=== PATIENT | female | born 1970 | race Caucasian/White ===

== ENCOUNTER 2022-12-30 08:15 | Outpatient (CLI) | payer OTHER, SELFPAY | END 2022-12-30 08:16 | disposition home or self-care (01) | PROVIDERS: PCP Family Medicine; Visit Provider Internal Medicine | DX: E78.5 Hyperlipidemia, unspecified (principal); I10 Essential (primary) hypertension; R73.03 Prediabetes | CPT/HCPCS: 80048; 80061 ==

== ENCOUNTER 2023-01-08 10:30 | Outpatient (RCR) | payer OTHER, SELFPAY | END 2023-03-12 10:08 | disposition home or self-care (01) | PROVIDERS: PCP Family Medicine; Visit Provider Family Medicine | DX: M77.11 Lateral epicondylitis, right elbow (principal); M25.521 Pain in right elbow; Z51.89 Encounter for other specified aftercare | CPT/HCPCS: 97110; 97165; X5282 ==

== ENCOUNTER 2023-03-16 08:35 | Outpatient (CLI) | payer OTHER, SELFPAY ==
--- NOTE | 2023-03-16 09:45 | CRLHL7_ITS ---
For Patients: As a result of the Century Cures Act, medical imaging exams and procedure reports are released immediately into your electronic medical record. You may view this report before your referring provider. If you have questions, please contact your health care provider. BILATERAL SCREENING MAMMOGRAM WITH COMPUTER-AIDED DETECTION AND TOMOSYNTHESIS TECHNIQUE: CC and MLO views were obtained. These mammographic images have been obtained using full-field digital technique. These mammographic images were interpreted with the benefit of computer-aided detection. Breast tomosynthesis was used in this interpretation. COMPARISON FILM: 10/18/21, 04/17/20, 02/09/19. FINDINGS: There are scattered areas of fibroglandular density. IMPRESSION: There is no radiographic evidence for malignancy. ASSESSMENT: BI-RADS Category 1: Negative RECOMMENDATION: Routine screening mammogram in 1 year. A lay language report of this examination will be provided to the patient. KT BANG M.D. Diagnostic Radiologist [email or web address] Transcribed: 4:[address]/Dictated by: Kt Bang MD @ 03/16/2023 11:22:00 AM (Electronically Signed)
== END 2023-03-16 08:36 | disposition home or self-care (01) ==
PROVIDERS: PCP Family Medicine; Visit Provider Internal Medicine
DX: Z12.31 Encounter for screening mammogram for malignant neoplasm of breast (principal)
CPT/HCPCS: 77063; 77067

== ENCOUNTER 2024-01-20 08:34 | Emergency (ER) | payer BC, SELFPAY ==
[2024-01-20 08:37] VITALS: BP 151/94; PULSE 92; RESP 18; TEMP 36.6; O2SAT 97; BMI 34.2
--- OUTSIDE RECORDS SUMMARY | 2024-01-20 08:37 | XMS_ITS | Encounter Summary ---
[facility] Address [address], [place] [address] Care Team Providers Care Customer Specialist Name Role Phone Pete Mcfarland MD Primary Care Provider [phone]- [phone] Reason for Visit * Reason Comments Medication Questions Entered automatical ly based on patient selection in [facility]. Encounter Details Date Type Department Care Team (Late Contact Info) Description 11/30/2023 9:00 AM CDT E-Visit [facility] [address] [place] [address] [place] [id number] Ioana Hogue PAKhloe [address] [facility] [address] [place] [id number] Chief Comp: Medication Questions Social History Tobacco Use Types Packs/Day Years Used Date Smoking Tobacco: Never Smokeless Tobacco: Never Alcohol Use Standard Drinks/Week Comments No 0 (1 standard drink = 0.6 oz pur e alcohol) Sex and Gender Information Value Date Recorded Sex Assigned at Not on file Gender Identity Not on file Sexual Orientation Not on file documented as of this encounter Plan of Treatment Upcoming Encounters Date Type Department Care Team (Late Contact Info) Description 01/20/2024 11:00 AM CDT Telemedicine [facility] [address] [facility] [address] [place], [place] [address] Ioana Hogue PAKhloe [id number] [place], [place] [address] documented as of this encounter Visit Diagnoses Not on filedocumented in this encounter Care Teams Customer Specialist Relationship Specialty Start Date End Date Pete Mcfarland MD [address] [place] [address] PCP - General 03/18/16 documented as of this encounter
--- OUTSIDE RECORDS SUMMARY | 2024-01-20 08:37 | XMS_ITS | Clinical Summary ---
[facility] Address [address], [place] [address] Care Team Providers Care Statue Maker Name Role Phone Pete Mcfarland MD Primary Care Provider [phone]- [phone] Source Comments You are receiving this document as you are listed as the primary care provider,follow-up provider, or the patient has been referred to you for consultation.This is in compliance with the Medicare and[facility] Hospital[facility] EHR Incentive Program,which states Providers who transition their patient to another setting of careor provider of care or refers their patient to another provider of care shouldprovide summary care record for each transition of care or referral. [facility] Allergies No known active allergies Medications Medication Sig Dispensed Refills Start Date End Date Status hydrochlorothiazid e (AKA HYDRODIURIL) 25 MG tabletIndications: ALEXANDRA SÁNCHEZ ThuOct 01, 2015 12:59 PM Received from: External Pharmacy Take 1 Tablet (25 mg) by mouth daily. Indications: ALEXANDRA SÁNCHEZ ThuOct 01, 2015 12:59 PM Received from: External Pharmacy 3 08/01/2015 Active multivitamin (THERAGRAN) tablet Take 1 Tablet by mouth daily. Active simvastatin (ZOCOR) 10 MG tablet Take 1 Tablet (10 mg) by mouth daily at bedtime. Active insulin pen needle (BD PEN NEEDLE BEATRIZ U/F) 32G X 4 MM Inject 1 Each subcutaneously once a week. with pen injector device. Each needle is for one time use only 50 Each 07/31/2021 Active tirzepatide-weight management (ZEPBOUND) 2.5 MG/0.5ML pen injectionIndicatio ns:Prediabetes,Obe sity (BMI 30-39.9) ([place]) Inject 0.5 mL (2.5 mg) subcutaneously once every week. 2 mL 08/18/2023 Active tirzepatide-weight management (ZEPBOUND) 5 MG/0.5ML pen injectionIndicatio ns:Prediabetes,Obe sity (BMI 30-39.9) ([place]) Inject 0.5 mL (5 mg) subcutaneously once every week. To start after completion of four weeks of 2.5 mg weekly dosing. 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 Obesity (BMI 30-39.9) 04/18/2016 Hyperlipidemia Essential (primary) hypertension Encounters Date Type Department Care Team Description 01/20/2024 E-Visit [facility] [address] [facility] [address] [place] [address] Juan Mukherjee Provider 11/30/2023 9:00 AM CDT E-Visit [facility] [address] [place] [facility] [place] [address] Ioana Hogue PA-C Chief Comp: Medication Questions from Last 3 Months Social History Tobacco Use Types Packs/Day Years Used Date Smoking Tobacco: Never Smokeless Tobacco: Never Tobacco Cessation:Counseling Given: No Alcohol Use Standard Drinks/Week Comments No 0 (1 standard drink = 0.6 oz pur e alcohol) Sex and Gender Information Value Date Recorded Sex Assigned at Not on file Gender Identity Not on file Sexual Orientation Not on file Last Filed Vital Signs Vital Sign Reading Time Taken Comments Blood Pressure 122/84 02/04/2023 8:41 AM CDT Pulse 82 07/14/2019 10:43 AM LAW ENFORCEMENT INSTRUCTOR Temperature 36.1 ??C (97 ??F) 11/05/2017 11:16 AM CDT Respiratory Rate 20 10/07/2011 12:57 PM CDT Oxygen Saturation - - Inhaled Oxygen Concentration - - Weight 76.2 kg (168 lb) 09/02/2023 10:00 AM CDT Height 152.4 cm (5') 09/02/2023 10:00 AM CDT Body Mass Index 32.81 09/02/2023 10:00 AM CDT Plan of Treatment Upcoming Encounters Date Type Department Care Team (Late st Contact Info) Description 01/20/2024 11:00 AM CDT Telemedicine [facility] [address] [facility] [address] [place] [address] Ioana Hogue PA-C [address] [facility] [address] [place], [place] [id number] Health Maintenance Due Date Last Done Comments Cervical Cancer Screening Due 1970 Colon Cancer Screening Plan Due 1970 Hep C Screening (Preventive Services) 1970 Mammogram 1970 HIV Screening (Preventive Services) 1986 Adult Preventive Visit 1988 HepB (1) 1989 Cholesterol 2015 Prediabetes: HGBA1C 07/19/2022 07/19/2021 COVID-19 Vaccine ( season) 2023 03/03/2023, 04/23/2022, 09/07/2021, Additional history exists DTaP/Tdap/Td (2 - Tdap) 09/14/2023 09/13/2013 Influenza (#1) 2024 03/03/2023, 03/09, 03/18/2021, Additional history exists Zoster/Shingles Completed 09/07/2021, 01/04/2021 HepA Aged Out No longer eligi ble based on patient's age to complete this topic Hib Aged Out No longer eligi ble based on patient's age to complete this topic IPV (Polio) Aged Out No longer eligi ble based on patient's age to complete this topic MCV4 Aged Out No longer eligi ble based on patient's age to complete this topic Pneumococcal Aged Out No longer eligi ble based on patient's age to complete this topic Procedures Procedure Name Priority Date/Time Associated Diagnosis Comments HGB A1C Routine 07/19/2021 9:59 AM LAW ENFORCEMENT INSTRUCTOR Screening for diabetes mellitus Obesity (BMI 30-39.9) from Last 3 Months or Most Recently Relevant to Health Maintenance Results * (ABNORMAL) Hemoglobin A1C Glycosylated (07/19/2021 9:59 AM LAW ENFORCEMENT INSTRUCTOR) Hemoglobin A1C 5.9(H) <=5.6 % 07/19/2021 5:20 PM LAW ENFORCEMENT INSTRUCTOR [facility] Blood Venipuncture / Unknown 07/19/2021 9:59 AM LAW ENFORCEMENT INSTRUCTOR 07/19/2021 9:59 AM LAW ENFORCEMENT INSTRUCTOR Narrative [facility] - 07/19/2021 5:20 PM LAW ENFORCEMENT INSTRUCTOR For patients not previously diagnosed with diabetes: 5.7-6.4%: Increased risk for diabetes 6.5% and greater: Diagnostic for diabetes For patients diagnosed with diabetes: <8.0%: Goal of therapy for ages 18-75 Clinicians may recommend a higher or lower goal for specific individuals. Ioana Hogue PA-C LAB_1 [facility] [address] [address] [phone] from Last 3 Months or Most Recently Relevant to Health Maintenance Care Teams Statue Maker Relationship Specialty Start Date End Date Pete Mcfarland MD [address] [place] [address] PCP - General 03/18/16
--- OUTSIDE RECORDS SUMMARY | 2024-01-20 08:37 | XMS_ITS | Clinical Summary ---
Author Organization [facility] Address [place], [place] [address] Care Team Providers Care Rn Med Surg Name Role Phone Tatiana Cosby MD Primary Care Provider +1- [phone] Allergies No known active allergies Medications Medication Sig Dispensed Refills Start Date End Date Status hydroCHLOROthiazide (HCTZ) 25 mg tablet Take 25 mg by mouth once daily. 12/11/2022 Active Ozempic 1 mg/dose (4 mg/3 mL) pen Inject 1 mg subcutaneous once weekly. 11/04/2022 Active simvastatin (ZOCOR) 10 mg tablet Take 10 mg by mouth once daily. Active celecoxib (CELEBREX) 200 mg capsuleIndications: Right lateral epicondylitis Take 1 Capsule (200 mg) by mouth 2 times daily if needed for Pain. 36 Capsule 1 12/25/2022 Active durable medical equipment (DME)Indications:Ri ght lateral epicondylitis Procare Foam Wrist Splint, Right, Large [id number] Length of Use: 99 months 0 12/25/2022 Active Active Problems No known active problems Social History Tobacco Use Types Packs/Day Years Used Date Smoking Tobacco: Never Smokeless Tobacco: Never Tobacco Cessation:Counseling Given: No Alcohol Use Standard Drinks/Week Comments Never 0 (1 standard drink = 0.6 oz pur e alcohol) Social Connections Answer Date Recorded Frequency of Communication with Friends and Fami ly Not on file 12/25/2022 Sex and Gender Information Value Date Recorded Sex Assigned at Not on file Gender Identity Not on file Sexual Orientation Not on file Obstetrics History Last Filed Vital Signs Vital Sign Reading Time Taken Comments Blood Pressure 120/82 12/25/2022 7:41 AM CDT Pulse 70 12/25/2022 7:41 AM CDT Temperature 36.5 ??C (97.7 ??F) 12/25/2022 7:41 AM CD T Respiratory Rate - - Oxygen Saturation 97% 12/25/2022 7:41 AM CDT Inhaled Oxygen Concentration - - Weight 71.8 kg (158 lb 6.4 oz) 12/25/2022 7:41 A M CDT Height - - Body Mass Index - - Plan of Treatment Health Maintenance Due Date Last Done Comments Tdap 1981 Depression screening for age 12+ 1982 HIV for age 15-65 1985 BMI (ht and wt on same day) for age 18+ 1988 Hepatitis C screening for ag e 18-79 1988 Tetanus booster 1990 Pap test for age 21-65 1991 Colonoscopy through age 75 2015 Lipids for age 45-75 2015 Zoster (shingles) series for age 50+ (1 of 2) 2020 COVID-19 vaccine series (2022- season) 2023 04/23/2022, 09/07/2021, 03/15/2021 Influenza for age 50-64 02/07/2024 Mammogram for age 45-75 03/16/2024 03/16/2023 Pneumococcal series for age 6-64 Aged Out No longer eligible b ased on patient's age to complete this topic Procedures Procedure Name Priority Date/Time Associated Diagnosis Comments SCAN-MAMMOGRAPHY REPORT 03/16/2023 12:00 AM CDT from Last 3 Months or Most Recently Relevant to Health Maintenance Results * SCAN-MAMMOGRAPHY REPORT (03/16/2023 12:00 AM CDT) Anatomical Region Laterality Modality Other Scanner OTHER from Last 3 Months or Most Recently Relevant to Health Maintenance Care Teams Rn Med Surg Relationship Specialty Start Date End Date Tatiana Cosby MD [address] [place], [place] [id number] PCP - General Internal Medicine 12/25/22
--- OUTSIDE RECORDS SUMMARY | 2024-01-20 08:37 | XMS_ITS | Encounter Summary ---
Author Organization [facility] Address [address] [address] Care Team Providers Care Dental Detail Representative Name Role Phone Pete Mcfarland MD Primary Care Provider [phone]- [phone] Encounter Details Date Type Department Care Team (Late st Contact Info) Description 01/20/2024 E-Visit [facility] [address] [facility] [address] [place] [id number] [address], [place] [address] Social History Tobacco Use Types Packs/Day Years [...] Info) Description 01/20/2024 11:00 AM CDT Telemedicine [facility] [address] [facility] [address] [place] [address] Ioana Hogue PA-C [address] [facility] [address] [place], [place] [id number] documented as of this encounter Visit Diagnoses Not on filedocumented in this encounter Care Teams Dental Detail Representative Relationship Specialty Start Date End Date Pete Mcfarland MD [address] [place] [address] PCP - General 03/18/16 documented as of this encounter
--- NOTE | 2024-01-20 09:04 | ED_ITS ---
HPI - General Adult General Date Seen: 01/20/24 Chief complaint: Flank Pain Stated complaint: s/p kidney stone surgery increasing pain Time Seen by Provider: 01/20/24 08:41 Source: patient Mode of arrival: ambulatory Limitations: no limitations History of Present Illness HPI narrative: Patient is a 53 year old female presenting to emergency department for left flank pain. She states she was in [place] on a vacation when she developed a kidney stone and needed a ureter stent placed 5 days ago. She was told she could remove the stent 2 days ago which she did. She states about 6 hours after that she started having left flank pain again in the pain is very similar to her previous kidney stone. The pain was manageable with the oxycodone but she ran out of oxycodone yesterday and has been trying to treat the pain with naproxen and ibuprofen without any improvement in her symptoms. She states she is unable to sleep because of the pain. Describes a colicky sensation that does not radiate. Denies fevers, chills, weakness, numbness, abdominal pain, diarrhea, nausea/vomiting, headache, chest pain, shortness of breath. Has been having issues with constipation for over a week now and take MiraLax daily at home without improvement. Describes the pain as colicky in nature. Related Data Home Medications ?Medication ?Instructions ?Recorded ?Confirmed multivitamin (Multiple Vitamins 1 tab PO QAM 01/19/23 01/19/23 tablet) oxycodone 5 mg tablet PO 01/20/24 tirzepatide (weight loss) 5 mg/0.5 5 mg subcut QWEEK 01/20/24 01/20/24 mL subcutaneous pen injector (Zepbound) Previous Rx's ?Medication ?Instructions ?Recorded hydrochlorothiazide 25 mg tablet 25 mg PO DAILY #90 tabs 01/19/23 simvastatin 10 mg tablet 10 mg PO DAILY #90 tabs 01/19/23 triamcinolone acetonide 0.1 % 1 applic topical BID #60 grams 01/19/23 topical cream ketorolac 10 mg tablet 10 mg PO Q6H PRN pain #20 tabs 01/20/24 oxycodone 5 mg tablet 5 mg PO Q6H PRN pain #12 tabs 01/20/24 Allergies Allergy/AdvReac Type Severity Reaction Status Date / Time No Known Allergies Allergy Verified 01/20/24 09:52 Review of Systems Status of ROS: Reports: 10 or more systems reviewed and unremarkable except as noted in History and below PFSH PFSH Surgical History History of bilateral breast reduction surgery (05/2019) ?Z98.890 - Other specified postprocedural states (ICD-10) History of laparoscopic adjustable gastric banding (2007) ?Z98.84 - Bariatric surgery status (ICD-10) History of hysterectomy (2014) ?Z90.710 - Acquired absence of both cervix and uterus (ICD-10) History of cholecystectomy (02/14/09) ?Z90.49 - Acquired absence of other specified parts of digestive tract (ICD- 10) Social History What is your current living situation?: I presently have a place to live Problems where you live: no known problems In the past 12 months, utilities in danger of being shut off: no In past 12 months, lack of transportation kept you from medical appts, meetings, work, or getting things needed for daily living: no In the past 12 mos, have been you worried that your food would run out before you had money to buy more?: never true In the past 12 mos, the food you bought just didn't last and you didn't have money to buy more?: never true Non-prescribed substance use: denies use How often does anyone, including family, friends and others, physically hurt you : never How often does anyone, including family, friends and others, insult or talk down to you: never How often does anyone, including family, friends and others, threaten you with harm: never How often does anyone, including family, friends and others, scream or curse at you: never Little interest or pleasure in doing things: not at all Feeling down, depressed, or hopeless: not at all Exam Narrative: Exam Narrative: Const: Well-nourished, Well-developed, in moderate distress Eyes: PERRL, no conjunctival injection, and symmetrical lids HENT: Atraumatic external nose and ears. Moist mucous membranes. Neck: Symmetric, trachea midline, No thyromegaly. CVS: RRR, No murmurs or gallops. Peripheral pulses 2+ and equal in all extremities RESP: Unlabored respiratory effort. Clear to auscultation bilaterally. GI: Nontender/Nondistended, No rebound or guarding. Left CVA tenderness MSK:Extremities w/o deformity, Normal Active ROM Skin: Warm, Dry. No rashes or lesions. Neuro: Normal Muscle tone, No focal neurological deficits. Psych: Awake, Alert, & Oriented x3. Appropriate mood and affect. Const: Vital Signs, click to edit/add: Vital Signs - 24 hr 01/20/24 08:37 01/20/24 09:54 01/20/24 11:44 Temperature 97.9 F Pulse Rate [Right Pulse Oximeter] 92 84 Respiratory Rate 18 18 18 Blood Pressure [Ri ght Upper Arm] 151/94 H 139/93 H Pulse Oximetry 97 97 97 Oxygen Delivery Me thod Room Air Course Vital Signs Vital signs: Initial Vital Signs Temperature 97.9 F 01/20/24 08:37 Temperature Source Temporal Artery Scan 01/20/24 08:37 Pulse Rate 92 01/20/24 08:37 Respiratory Rate 18 01/20/24 08:37 Blood Pressure 151/94 H 01/20/24 08:37 Blood Pressure Mean 113 H 01/20/24 08:37 Blood Pressure Position Sitting 01/20/24 08:37 Pulse Oximetry 97 01/20/24 08:37 Oxygen Delivery Method Room Air 01/20/24 08:37 Vital Signs Temperature 97.9 F 01/20/24 08:37 Pulse Rate 92 01/20/24 08:37 Respiratory Rate 18 01/20/24 08:37 Blood Pressure 151/94 H 01/20/24 08:37 Pulse Oximetry 97 01/20/24 08:37 Oxygen Delivery Method Room Air 01/20/24 08:37 Temperature 97.9 F 01/20/24 08:37 Pulse Rate 84 01/20/24 11:44 Respiratory Rate 18 01/20/24 11:44 Blood Pressure 139/93 H 01/20/24 11:44 Pulse Oximetry 97 01/20/24 11:44 Oxygen Delivery Method Room Air 01/20/24 08:37 Medications Administered Medications: Discontinued Medications Generic Name Dose Route Start Last Admin Trade Name Freq PRN Reason Stop Dose Admin Ketorolac Tromethamine 15 mg 01/20/24 09:47 01/20/24 09:51 Ketorolac 15 Mg/Ml Inj IVP 01/20/24 09:48 15 mg ONCE ONE Administration Morphine Sulfate 4 mg 01/20/24 09:04 01/20/24 09:31 Morphine 4 Mg/Ml Inj IVP 01/20/24 09:05 4 mg ONCE ONE Administration Medical Decision Making MDM Narrative Medical decision making narrative: Patient is a 53-year-old female presenting for left flank pain. She recently removed a ureter stent as directed and pain started after that. Has ran out of oxycodone and states the pain is becoming unmanageable at home. Her symptoms could be pyelonephritis, muscle strain. Seems unlikely to be another kidney stone considering she just had surgery to remove a kidney stone but I do not have the report and I am unable to say if there were other nonobstructing stones within the kidney that may have moved. Seems unlikely to be related to a AAA as it is unilateral and she would be low risk for this. Will give her morphine for pain. Also ordered a CBC, CMP, UA urinalysis, lipase. CT scan of the abdomen pelvis with contrast ordered CBC, CMP shows no concerning findings. Creatinine has gone up in the past year but we have no other test to compare to so unsure if this is truly meeting criteria for CESILIA also it is still within the limits of all our normal creatinine scale. Lipase within normal limits. She is still having pain so Toradol was ordered. This did help with her symptoms. CT scan was done and reviewed by myself and the radiologist. It shows some left-sided distal ureter hyperenhancement with surrounding inflammation and moderate upstream hydroureteronephrosis. This also delayed left nephrogram which is suggestive of obstructive uropathy. She is supposed to follow-up with [facility] and I will page them at this time for recommendations. Urinalysis shows no signs of UTI. I spoke to the on-call [facility] PA who states considering she has no signs of UTI and her pain has been controlled with the Toradol she can follow-up outpatient. They have an opening next Thursday 11:30 which she is agreeable to. Pain is starting to come back slightly another dose of morphine was given. She feels comfortable with this plan I will discharge her home with Toradol and oxycodone. I explained to her to return for re-evaluation if symptoms are worsening. Lab Data Labs: Lab Results 01/20/24 01/20/24 Range/Units 09:25 10:35 WBC 11.05 H (4.50-11.00) K/uL RBC 5.63 H (4.00-5.20) m/uL Hgb 15.1 (12.0-16.0) gm/dL Hct 44.7 (33.0-51.0) % MCV 79 L (80-100) fL MCH 27 (26-34) pg MCHC 34 (32-36) gm/dL RDW Coeff of Rahul 12.3 (11.5-15.5) % Plt Count 314 (140-440) K/uL Neut % (Auto) 79.5 H (42.0-72.0) % Lymph % (Auto) 12.1 L (20-44) % [place] % (Auto) 5.5 (0.0-11.0) % Eos % (Auto) 2.2 (0.0-7.0) % Baso % (Auto) 0.4 (0.0-3.0) % Neut # (Auto) 8.80 H (1.7-7.0) K/uL Lymph # (Auto) 1.30 (0.90-2.90) K/uL [place] # (Auto) 0.60 (0.00-0.90) K/UL Eos # (Auto) 0.20 (0.00-0.50) K/uL Baso # (Auto) 0.00 (0.00-0.30) K/uL Abs Immat Gran (auto) 0.00 (0.00-0.30) K/uL Imm/Tot Granulo (auto) 0.3 % Sodium 138 (135-149) mmol/L Potassium 3.9 (3.6-5.1) mmol/L Chloride 103 (96-114) mmol/L Carbon Dioxide 25 (20-32) mmol/L Anion Gap 10 (7-15) mEq/L BUN 27 (7-30) mg/dL Creatinine 1.3 (0.5-1.5) mg/dL Estimated Creat Clear 35.95 Estimated GFR 49 ml/min Glucose 110 (60-115) mg/dL Calcium 9.8 (8.4-10.6) mg/dL Total Bilirubin 0.8 (0.1-1.5) mg/dL AST 47 H (12-35) U/L ALT 36 H (4-35) U/L Alkaline Phosphatase 108 (40-150) U/L Total Protein 7.9 (6.0-8.3) g/dL Albumin 4.7 (3.3-5.0) g/dL Lipase 164 (23-300) U/L Urine Color Dark yellow (Yellow) Urine Appearance Clear (Clear) Urine pH 5.5 (5.0-8.5) Ur Specific [place] 1.020 (1.000-1.030) Urine Protein Negative (Negative) Urine Glucose (UA) Negative (Negative) Urine Ketones Negative (Negative) Urine Blood 1+ A (Negative) Urine Nitrite Negative (Negative) Urine Bilirubin Negative (Negative) Urine Urobilinogen 0.2 (0.2-1.0) Ur Leukocyte Esterase Negative (Negative) Urine RBC 0-2 (0-2) Urine WBC 2-5 (0-5) Ur Squamous Epith Cells Moderate A (None-Few) Urine Bacteria Few A (None) Imaging Data CT scan abdomen and pelvis: Attestation: I have reviewed the pertinent imaging results. Radiologist's impression: There is hyperenhancement and thickening of the left distal ureter with surrounding inflammatory changes and moderate upstream hydroureteronephrosis. There is also a delayed left nephrogram, which is also suggestive of obstructive uropathy. Please note that all CT scans at this facility use dose modulation, iterative reconstruction, and/or weight-based dosing when appropriate to reduce radiation dose to as low as reasonably achievable. Dictated by Lamine Garcia MD @ 01/20/2024 10:07:12 AM (Electronically Signed) Discharge Plan Discharge Clinical Impression: Hydronephrosis due to obstruction of ureter Patient Disposition: Home, Self-Care Condition: Improved Instructions: Hydronephrosis (ED) Additional Instructions: I will prescribe you Toradol, oxycodone which you can take as needed for pain. Can also take Tylenol. You have an appointment scheduled with [facility] in [place] at 11:30. Their address is [address] [place] [address]. Their phone number is [phone]. Return to emergency department if her pain becomes uncontrollable. At that time we may need to transfer you to a hospital with Urology services. Prescriptions: New ketorolac 10 mg tablet 10 mg PO Q6H PRN (Reason: pain) Qty: 20 0RF Rx Instructions: maximum total duration of 5 days from all oral, intranasal, or parenteral formulations oxycodone 5 mg tablet 5 mg PO Q6H PRN (Reason: pain) Qty: 12 0RF No Action multivitamin [Multiple Vitamins] Tablet 1 tab PO QAM simvastatin 10 mg tablet 10 mg PO DAILY Qty: 90 3RF hydrochlorothiazide 25 mg tablet 25 mg PO DAILY Qty: 90 3RF triamcinolone acetonide 0.1 % cream 1 applic topical BID Qty: 60 2RF Zepbound 5 mg/0.5 mL pen injector 5 mg subcut QWEEK oxycodone 5 mg tablet PO Follow Up/Referrals: Han Knowles MD [Primary Care Provider] - Stand Alone Forms: MyHealth Info Instructions
--- NOTE | 2024-01-20 09:05 | CRLHL7_ITS ---
For Patients: As a result of the Century Cures Act, medical imaging exams and procedure reports are released immediately into your electronic medical record. You may view this report before your referring provider. If you have questions, please contact your health care provider. INDICATION: LEFT FLANK PAIN, URETER STENT REMOVED 2 DAYS AGO. TECHNIQUE: CT abdomen and pelvis acquired with 85 cc Omnipaque 350 IV contrast. COMPARISON: None. FINDINGS: Lower chest: Unremarkable. Liver: Unremarkable. Normal in size and attenuation. No suspicious masses. Gallbladder and bile ducts: Cholecystectomy with dilatation of the intrahepatic and extrahepatic biliary tree, with smooth tapering at the ampulla Vater, compatible with reservoir effect. Pancreas: Unremarkable. No mass or inflammation. Spleen: Unremarkable. Normal in size. No masses. Adrenal glands: Unremarkable. No nodules. Kidneys: There is enhancement and thickening of the left distal ureter with surrounding periureteral fat stranding. There is moderate upstream left hydroureteronephrosis with associated delayed left nephrogram. Left renal cyst. No suspicious renal masses or stones. GI tract: Gastric band in place. Normal bowel caliber without evidence of bowel obstruction. Colonic diverticulosis without evidence of acute diverticulitis. Normal appendix. Vasculature: Abdominal aorta is normal in caliber. Mesenteric arteries are patent. Lymph nodes: No lymphadenopathy. Peritoneum/Abdominal Wall: No free air or significant free fluid. Pelvis: Mild diffuse bladder wall thickening.. Bones: Unremarkable for age. IMPRESSION: There is hyperenhancement and thickening of the left distal ureter with surrounding inflammatory changes and moderate upstream hydroureteronephrosis. There is also a delayed left nephrogram, which is also suggestive of obstructive uropathy. Please note that all CT scans at this facility use dose modulation, iterative reconstruction, and/or weight-based dosing when appropriate to reduce radiation dose to as low as reasonably achievable. Dictated by Lamine Garcia MD @ 01/20/2024 10:07:12 AM (Electronically Signed)
[2024-01-20] MEDS: MORPHINE 4 MG/ML INJ IVP ×2 (09:31→12:37)
--- OUTSIDE RECORDS SUMMARY | 2024-01-20 09:31 | XMS_ITS | Clinical Summary ---
Author Organization [facility] Address [address], [place] [address] Care Team Providers Care Freight Broker Name Role Phone Pete Mcfarland MD Primary Care Provider [phone]- [phone] Source Comments You are receiving this document as you are listed as the primary care provider,follow-up provider, or the patient has been referred to you for consultation.This is in compliance with the Medicare and[facility] EHR Incentive Program,which states Providers who transition their patient to another setting of careor provider of care or refers their patient to another provider of care shouldprovide summary care record for each transition of care or referral. [facility] Allergies No known active allergies Medications Medication [...] MG/0.5ML pen injectionIndicatio ns:Prediabetes,Obe sity (BMI 30-39.9) ([facility]) Inject 0.5 mL (2.5 mg) subcutaneously once every week. 2 mL 08/18/2023 Active tirzepatide-weight management (ZEPBOUND) 5 MG/0.5ML pen injectionIndicatio ns:Prediabetes,Obe sity (BMI 30-39.9) ([facility]) Inject 0.5 mL (5 mg) subcutaneously once every week. To start after completion of four weeks of 2.5 mg weekly dosing. 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 Obesity (BMI 30-39.9) 04/18/2016 Hyperlipidemia Essential (primary) hypertension Encounters Date Type Department Care Team Description 01/20/2024 E-Visit [facility] [address] [place] [address] Juan Mukherjee Provider 11/30/2023 9:00 AM CDT E-Visit [facility] [address] [place] [address] [place] [address] Ioana Hogue PA-C Chief Comp: Medication Questions [...] AM CDT Pulse 82 07/14/2019 10:43 AM DEAD MAIL CHECKER Temperature 36.1 ??C (97 ??F) 11/05/2017 11:16 [...] Info) Description 01/20/2024 11:00 AM CDT Telemedicine [facility] [address] [place] [address] Ioana Hogue PA-C [address] [facility] [address] [place], [place] [id number] Health Maintenance Due Date Last Done Comments [...] Comments HGB A1C Routine 07/19/2021 9:59 AM DEAD MAIL CHECKER Screening for diabetes mellitus Obesity (BMI 30-39.9) from Last 3 Months or Most Recently Relevant to Health Maintenance Results * (ABNORMAL) Hemoglobin A1C Glycosylated (07/19/2021 9:59 AM DEAD MAIL CHECKER) Hemoglobin A1C 5.9(H) <=5.6 % 07/19/2021 5:20 PM DEAD MAIL CHECKER [facility] Blood Venipuncture / Unknown 07/19/2021 9:59 AM DEAD MAIL CHECKER 07/19/2021 9:59 AM DEAD MAIL CHECKER Narrative [facility] - 07/19/2021 5:20 PM DEAD MAIL CHECKER For patients not previously diagnosed with diabetes: 5.7-6.4%: Increased risk for diabetes 6.5% and greater: Diagnostic for diabetes For patients diagnosed with diabetes: <8.0%: Goal of therapy for ages 18-75 Clinicians may recommend a higher or lower goal for specific individuals. Ioana Hogue PA-C LAB_1 [facility] [address] [address] [phone] from Last 3 Months or Most Recently Relevant to Health Maintenance Care Teams Freight Broker Relationship Specialty Start Date End Date Pete Mcfarland MD [address] [place] [address] PCP - General 03/18/16
--- OUTSIDE RECORDS SUMMARY | 2024-01-20 09:31 | XMS_ITS | Clinical Summary ---
Author Organization [facility] Address [place], [place] [address] Care Team Providers Care Streetcar Repairer Name Role Phone Tatiana Cosby MD Primary Care Provider [phone]- [phone] Allergies No known active allergies Medications Medication [...] epicondylitis Procare Foam Wrist Splint, Right, Large [id number] Length of Use: 99 months 0 12/25/2022 [...] Recently Relevant to Health Maintenance Care Teams Streetcar Repairer Relationship Specialty Start Date End Date Tatiana Cosby MD [address] [place], [place] [id number] PCP - General Internal Medicine 12/25/22
--- OUTSIDE RECORDS SUMMARY | 2024-01-20 09:31 | XMS_ITS | Encounter Summary ---
Author Organization [facility] Address [address], [place] [address] Care Team Providers Care Social Scientist Name Role Phone Pete Mcfarland MD Primary Care Provider [phone]- [phone] Reason for Visit * Reason Comments Medication Questions Entered automatical ly based on patient selection in [employer]. Encounter Details Date Type Department Care Team (Late Contact Info) Description 11/30/2023 9:00 AM CDT E-Visit [facility] [place] [address] [place] [address] [place] [id number] Ioana Hogue PAKhloe [address] [facility] [address] [place] [id number] Chief Comp: Medication Questions Social History Tobacco [...] Info) Description 01/20/2024 11:00 AM CDT Telemedicine [facility] [place] [address] [facility] [address] [place], [place] [address] Ioana Hogue PAKhloe [id number] [place], [place] [id number] documented as of this encounter Visit Diagnoses Not on filedocumented in this encounter Care Teams Social Scientist Relationship Specialty Start Date End Date Pete Mcfarland MD [address] [place] [address] PCP - General 03/18/16 documented as of this encounter
--- OUTSIDE RECORDS SUMMARY | 2024-01-20 09:31 | XMS_ITS | Encounter Summary ---
Author Organization [facility] Address [address] [address] Care Team Providers Care Senior Director Of [employer] Name Role Phone Pete Mcfarland MD Primary Care Provider [phone]- [phone] Encounter Details Date Type Department Care Team (Late st Contact Info) Description 01/20/2024 E-Visit [facility] [place] [address] [facility] [address] [place] [address] [address], [place] [address] Social History Tobacco Use Types Packs/Day Years [...] Info) Description 01/20/2024 11:00 AM CDT Telemedicine [facility] [place] [address] [facility] [address] [place] [address] Ioana Hogue PA-C [address] [facility] [address] [place], [place] [address] documented as of this encounter Visit Diagnoses Not on filedocumented in this encounter Care Teams Senior Director Of [employer] Relationship Specialty Start Date End Date Pete Mcfarland MD [address] [place] [address] PCP - General 03/18/16 documented as of this encounter
[2024-01-20 09:34] LABS: Basophils Percent Auto 0.4 % (0.0-3.0); Eosinophils Percent Auto 2.2 % (0.0-7.0); Hematocrit 44.7 % (33.0-51.0); Hemoglobin* 15.1 gm/dL (12.0-16.0); Immature Granulocytes Pct Auto 0.3 %; Lymphocytes Percent Auto 12.1 % (20-44); Mean Corpuscular HGB Conc 34 gm/dL (32-36); Mean Corpuscular Hemoglobin 27 pg (26-34); Mean Corpuscular Volume 79 fL (80-100); Monocytes Percent Auto 5.5 % (0.0-11.0); Neutrophils Percent Auto 79.5 % (42.0-72.0); Platelet Count* 314 K/uL (140-440); RDW Coefficient of Variation % 12.3 % (11.5-15.5); Red Blood Count 5.63 m/uL (4.00-5.20); White Blood Count* 11.05 K/uL (4.50-11.00)
[2024-01-20 09:40] LABS: Slide Review Reflex No
[2024-01-20 09:47] LABS: Albumin* 4.7 g/dL (3.3-5.0); Chloride* 103 mmol/L (96-114); Potassium* 3.9 mmol/L (3.6-5.1); Sodium* 138 mmol/L (135-149)
[2024-01-20 09:49] LABS: Lipase* 164 U/L (23-300)
[2024-01-20 09:50] LABS: Alanine Aminotransferase* 36 U/L (4-35); Alkaline Phosphatase* 108 U/L (40-150); Anion Gap 10 mEq/L (7-15); Aspartate Amino Transferase* 47 U/L (12-35); Bilirubin Total* 0.8 mg/dL (0.1-1.5); Blood Urea Nitrogen* 27 mg/dL (7-30); Carbon Dioxide* 25 mmol/L (20-32); Creatinine* 1.3 mg/dL (0.5-1.5); Est. Creatinine Clearance* 35.95; Estimated Glomerular Filt Rate 49 ml/min; Glucose* 110 mg/dL (60-115); Total Protein* 7.9 g/dL (6.0-8.3)
[2024-01-20 09:51] LABS: Calcium* 9.8 mg/dL (8.4-10.6)
[2024-01-20] MEDS: KETOROLAC 15 MG/ML inj IVP (09:51)
[2024-01-20 09:54] VITALS: RESP 18; O2SAT 97
[2024-01-20 10:45] LABS: Appearance Urine Clear (Clear); Bilirubin Urine Negative (Negative); Blood Urine 1+ (Negative); Color Urine Dark yellow (Yellow); Glucose Urine Negative (Negative); Ketones Urine Negative (Negative); Leukocyte Esterase Urine Negative (Negative); Nitrite Urine Negative (Negative); Protein Urine Negative (Negative); Urobilinogen Urine 0.2 (0.2-1.0); pH Urine 5.5 (5.0-8.5)
[2024-01-20 11:39] LABS: Bacteria Urine Few; RBC Urine 0-2 (0-2); Squamous Epithelial Cell Urine Moderate (None-Few)
[2024-01-20 11:44] VITALS: BP 139/93; PULSE 84; RESP 18; O2SAT 97
== END 2024-01-20 13:10 | disposition home or self-care (01) ==
PROVIDERS: Emergency Provider Student in an Organized Health Care Education/Training Program; PCP Family Medicine
DX: N13.2 Hydronephrosis with renal and ureteral calculous obstruction (principal)
CPT/HCPCS: 36415; 74177; 80053; 81001; 83690; 85025; 87086; 96374; 96375; 96376; 99283; 99284; 99285; J1885; J2270; Q9967

== ENCOUNTER 2024-02-22 09:39 | Outpatient (CLI) | payer BC, SELFPAY ==
--- OUTSIDE RECORDS SUMMARY | 2024-02-25 07:25 | XMS_ITS | Data Portability ---
Author Organization [facility] [facility], [facility] Address [address] [facility] [address] [place] [address] Care Team Providers Care Recooperer Name Role Phone MIKAEL WALTER Primary Care Provider [phone] [facility] Primary Care Pro vider Assessment No assessment recorded. Plan of Treatment Reminders Order Date Submit Date Provider Last Modified By Organization Details Last Modified Time Details Appointments None recorded. Lab urinalysi s, dipstick 2023 024 [facility], [address], [place], [address], 12:11:17 Referral None recorded. Procedures None recorded. Surgeries None recorded. Imaging None recorded. Medication Orders None recorded. Patient TargetsNo targets recorded. Patient InstructionsNo instructions recorded. Reason for Referral None Reported. Results Created Date Observation Date Name Description Value Unit Range Abnormal Flag Note LastModifiedBy Organization Detail LastModifiedTime 02/01/2002/01/2024 urina lysis , dipst ick BLOOD Negati ve Not Available [facility] [address], [place], [address], 02/01/2024 09:32:05 02/01/2002/01/2024 urina lysis , dipst ick BILIRUBIN Negati ve Not Available [facility] [address], [place], [address], 02/01/2024 09:32:05 02/01/2002/01/2024 urina lysis , dipst ick UROBILINOGEN 0.2 mg/dL (Norm) Not Available [facility] [address], [place], [address], 02/01/2024 09:32:05 02/01/20 24 02/01/2024 urina lysis , dipst ick KETONES Negati ve Not Available [facility] [address], [place], [address], 02/01/2024 09:32:05 02/01/20 24 02/01/2024 urina lysis , dipst ick PROTEIN Negati ve Not Available [facility] [address], [place], [address], 02/01/2024 09:32:05 02/01/2002/01/2024 urina lysis , dipst ick NITRITES Negati ve Not Available [facility] [address], [place], [address], 02/01/2024 09:32:05 02/01/2002/01/2024 urina lysis , dipst ick GLUCOSE Negati ve Not Available [facility] [address], [place], [address], 02/01/2024 09:32:05 02/01/2002/01/2024 urina lysis , dipst ick p.H. 5.0 Not Available [facility] [address], [place], [address], 02/01/2024 09:32:05 02/01/2002/01/2024 urina lysis , dipst ick S.G. (Specific [place]) 1.025 Not Available [facility] [address], [place], [address], 02/01/2024 09:32:05 02/01/2002/01/2024 urina lysis , dipst ick LEUKOCYTES Negati ve Not Available [facility] [address], [place], [address], 02/01/2024 09:32:05 Result Notes None recorded. Procedures Surgical History Date Name Laterality Status Provider Name and Address Organization Details Recorded Time 06/08/19 Oncology colorectal scr completed Not Available Health Note 01/25/2024 13:16:16 Laparoscopic cholecystectomy completed Not Available Health Note 01/25/2024 13:16:16 Partial hysterectomy completed Not Available Health Note 01/25/2024 13:16:16 Fragmenting of kidney stone completed Not Available Health Note 01/25/2024 13:16:16 Imaging Results None recorded. Procedure Notes None recorded. Medical Equipment None Reported. Allergies No known drug allergies Medications Name Sig Start Date Stop Date Status Note LastModified by Organization Details LastModified Time simvastatin 10 mg tablet TAKE 1 TABLET BY MOUTH EVERY DAY active Not Available Not Available No t Available ketorolac 10 mg tablet active Not Available Not Available No t Available tamsulosin 0.4 mg capsule active Not Available Not Available Not Available hydrochlorot hiazide 25 mg tablet 25mg 1/day active Not Available Not Available Not Available oxycodone 5 mg tablet active Not Available Not Available No t Available simvastatin Don't know 1/day active Not Available Not Available No t Available Ozempic 1 mg/dose (4 mg/3 mL) subcutaneous pen injector INJECT 1 MG SUBCUTANEOU SLY ONCE EVERY WEEK. active Not Available Not Available Not Available Zepbound 5 mg/0.5 mL subcutaneous pen injector active Not Available Not Available Not Available Zepbound 2.5 mg/0.5 mL subcutaneous pen injector INJECT 0.5 ML (2.5 MG) SUBCUTANEOU SLY ONCE EVERY WEEK. active Not Available Not Available Not Available Zepbound 5mg 1x/wk active Not Available Not A vailable Not Available Vitals Date Recorded Body height Body mass index (BMI) Body weight Provider Name and Address Organization Details Last Updated DateTime 02/01/2024 152.4 cm 33.2 kg/m2 88160.7 g Breana Lopez [facility] 02/01/2024 12:13:49 Social History Question Answer Notes LastModified by Organizat ion Details LastModified Time Tobacco Smoking Status Never Smoker Not Available Health Note 01/25/2024 13:16:16 What Is Your Level Of Alcohol Consumption? NONE [email or web address] Information not available 01/25/2024 What Is Your Level Of Caffeine Consumption? Occasional [email or web address] Information not available 01/25/2024 How Much Tobacco Do You Chew? None [email or web address] Information not available 01/25/2024 Do You Or Have You Ever Used E-cigarettes Or Vape? Never Used Electronic Cigarettes [email or web address] Information not available 01/25/2024 Number Of Pregnancies 6 [email or web address] Information not available 01/25/2024 Number Of Vaginal Deliveries 3 [email or web address] Information not available 01/25/2024 Number Of Caesarean Sections 0 [email or web address] Information not available 01/25/2024 Could You Be ? No [email or web address] Information not available 01/25/2024 What Was The Date Of Your Most Recent Tobacco Screening? 02/01/2024 aronningen Information not available 02/01/2024 What Is Your Relationship Status? [email or web address] Information not available 01/25/2024 Are You Sexually Active? Yes [email or web address] Information not available 01/25/2024 Do You Or Have You Ever Used Smokeless Tobacco? Never Used Smokeless Tobacco [email or web address] Information not available 01/25/2024 Do You Use Any Illicit Or Recreational Drugs? No [email or web address] Information not available 01/25/2024 How Many Days In The Past Year Have You Consumed 4 Or More Drinks? 0 [email or web address] Information no t available 01/25/2024 Sex: Unknown Functional Status None recorded. Mental Status None recorded. Family History Relationship Description Onset Age of this Age Resolved Age Notes LastModified by Organization Details LastModified Time Father Family history of cardiac disorder [email or web address] Not available 2023 13:16:14 Paternal Grandfather Family history of cardiac disorder [email or web address] Not available 2023 13:16:14 Medical History Condition Response High Blood Pressure Y Kidney Stones Y Depression N Lung Disease N GERD/Acid Reflux N Diabetes N Sexually Transmitted Infection N Bleeding Disorder N Cancer N High Cholesterol Y Heart Disease N Gynecological History Statement/Question Response If Post Menopausal, Age at Menopause 53 Leaking urine with intercourse N Hormone Therapy N Sexually Active? Y Pain with intercourse N Obstetrics History GPAL:G 0 P 0 0 0 0 Immunizations Vaccine Type Date Status Provider Name and Address Organization Details Recorded Time zoster live 06/08/2021 completed Breana Ronspenceren null, [facility] 02/01/2024 12:10:01 influenza, unspecified formulation 02/06/2023 completed Breana Ronningen null, [facility] 02/01/2024 12:10:01 SARS-COV-2 (COVID-19) vaccine, UNSPECIFIED 02/06/2023 completed Breana Ronningen null, [facility] 02/01/2024 12:10:01 Influenza, split virus, quadrivalent, preservative 03/18/2021 completed Breana Ronningen null, [facility] 02/01/2024 12:10:01 zoster recombinant 09/07/2021 completed Breana Kelton ngen null, [facility] 02/01/2024 12:10:01 zoster recombinant 01/04/2021 completed Breana Kelton ngen null, [facility] 02/01/2024 12:10:01 Influenza, live, trivalent, intranasal 03/10/2012 completed Breana Ronningen null, [facility] 02/01/2024 12:10:01 Influenza, live, trivalent, intranasal 04/14/2011 completed Breana Ronspenceren null, [facility] 02/01/2024 12:10:01 COVID-19, mRNA, LNP-S, PF, 30 mcg/0.3 mL dose 06/26/2020 completed Breana Ronspenceren null, [facility] 02/01/2024 12:10:01 COVID-19, mRNA, LNP-S, PF, 30 mcg/0.3 mL dose 03/15/2021 completed Breana Ronningen null, [facility] 02/01/2024 12:10:01 COVID-19, mRNA, LNP-S, PF, 30 mcg/0.3 mL dose 06/05/2020 completed Breana Ronningen null, [facility] 02/01/2024 12:10:01 COVID-19, mRNA, LNP-S, PF, 30 mcg/0.3 mL dose, sabra-sucrose 09/07/2021 completed Breana Ronningen null, [facility] 02/01/2024 12:10:01 COVID-19, mRNA, LNP-S, bivalent, PF, 30 mcg/0.3 mL dose 04/23/2022 completed Breana Ronningen null, [facility] 02/01/2024 12:10:01 COVID-19, mRNA, LNP-S, PF, sabra-sucrose, 3 mcg/0.3 mL 03/03/2023 completed Breana Ronningen null, [facility] 02/01/2024 12:10:01 Tdap 09/13/2013 completed Breana Ronningen null, [facility] 02/01/2024 12:10:01 Influenza, split virus, trivalent, PF 03/10/2018 completed Breana Ronningen null, [facility] 02/01/2024 12:10:01 Influenza, split virus, trivalent, PF 03/14/2020 completed Breana Ronningen null, [facility] 02/01/2024 12:10:01 Novel Jyhtaplte-[id number], nasal 04/04/2009 completed Breana Ronningen null, [facility] 02/01/2024 12:10:01 Influenza, live, quadrivalent, intranasal 03/14/2015 completed Breana Ronningen null, [facility] 02/01/2024 12:10:01 Influenza, live, quadrivalent, intranasal 03/29/2013 completed Breana Ronningen null, [facility] 02/01/2024 12:10:01 Influenza, live, quadrivalent, intranasal 04/05/2014 completed Breana Ronningen null, [facility] 02/01/2024 12:10:01 Influenza, split virus, quadrivalent, PF 03/03/2023 completed Breana Ronningen null, [facility] 02/01/2024 12:10:01 Influenza, split virus, quadrivalent, PF 03/31/2022 completed Breana Ronningen null, [facility] 02/01/2024 12:10:01 Influenza, split virus, quadrivalent, PF 04/04/2009 completed Bre[facility] null, [facility] 02/01/2024 12:10:01 Influenza, split virus, quadrivalent, PF 05/13/2016 completed Breana lopez [facility]IJ[facility] 02/01/2024 12:10:02 Influenza, split virus, quadrivalent, PF 05/19/2017 completed Breana lopez ELIJAH [facility] 02/01/2024 12:10:02 Past Encounters Encounter ID Performer Location Encounter Start Date Encounter Closed Date Diagnosis/Indication Diagnosis SNOMED-CT Code Diagnosis ICD10 Code [id number] [facility] [address] [address] 02/01/2024 11:46:36 02/02/2024 15:14:06 Kidney stone 29602288 N20.0 Health Concerns Section Related Observation LastModified by Organization Detai ls LastModified Time None Recorded Concern Status LastModified by Organization Details LastModified Time None Recorded Advance Directives Directive None Recorded Payers Encounter Date Sequence Insurance Name Policy Number Policy Abker Covered Member ID Baker Member ID Guarantor Name 02/01/2024 1 [place] [id number] Tahira Kim [id number] Tahira Kim Notes Date Note Type Note Provider Name and Address Organization Details Recorded Time 02/01/2024 text/html HPI Notes: 53 yo F presents for kidney stone. Recently seen in ER while on vacation in [place] with left flank pain, found to have 3 mm distal left ureteral stone with mild hydronephrosis. She underwent (presumably, no op note available) URS/stent on 01/14 and was discharged. Stent was left on a string which she self-removed on 01/17. She soon after developed left flank pain, seen in ER in [place], had CT which showed L hydronephrosis, took flomax/pain meds for 48 hours and pain resolved. She denies prior h/o stones. TANA MIGUEL PA-C [address] [place] [address],[address], [place], [address], [facility] 02/01/2024 12:57:00 OBGyn Episode No OBEpisode recorded.
--- OUTSIDE RECORDS SUMMARY | 2024-02-25 07:26 | XMS_ITS | Encounter Summary ---
Author Organization [facility] Address [address], [place] [address] Care Team Providers Care Director Rehabilitation Program Name Role Phone Pete Mcfarland MD Primary Care Provider [phone]- [phone] Encounter Details Date Type Department Care Team (Late st Contact Info) Description 01/20/2024 E-Visit [facility] [address] [facility] [address] [place], [place] [id number] Yaz, [place] [address] Social History Tobacco Use Types Packs/Day Years [...] Care Team (Late st Contact Info) Description 06/21/2024 11:30 AM FUNERAL PROFESSIONAL Telemedicine [facility] [address] [facility] [address] [place], [place] [address] Ioana Hogue PA-C [address] [facility] [address] [place], [place] [address] documented as of this encounter Visit Diagnoses Not on filedocumented in this encounter Care Teams Director Rehabilitation Program Relationship Specialty Start Date End Date Pete Mcfarland MD [address] [place] [address] PCP - General 03/18/16 documented as of this encounter
--- OUTSIDE RECORDS SUMMARY | 2024-02-25 07:26 | XMS_ITS | Encounter Summary ---
Author Organization [facility] Address [address] [place] [address] Care Team Providers Care Claims Sorter Name Role Phone Pete Mcfarland MD Primary Care Provider [phone]- [phone] Reason for Visit * Reason Comments Refill Submitted already on 01/20/24. Encounter Details Date Type Department Care Team (Late st Contact Info) Description 02/15/2024 Refill [facility] [address] [place], [place] [address] Ioana Hogue PA-C [address] [facility] [address] [place], [place] [address] Refill (Submitted already on 01/20/24. ) Social History Tobacco Use Types Packs/Day Years Used Date Smoking Tobacco: Never Smokeless Tobacco: Never Alcohol Use Standard Drinks/Week Comments No 0 (1 standard drink = 0.6 oz pur e alcohol) Sex and Gender Information Value Date Recorded Sex Assigned at Not on file Gender Identity Not on file Sexual Orientation Not on file documented as of this encounter Nursing Notes * Yue Lal RN - 02/17/2024 10:12 AM CDT Msg to provider for recommendations. Refer to evisit dated 02/10/24 * Yue Lal RN - 02/17/2024 10:07 AM CDT Pt called stating her pharmacy is waiting to hear from our clinic re: Wegovy 5 mg dosing. Medical records reviewed during this call. Noted the following rx was sent on 01/20/24: Disp Refills Start End tirzepatide-weight management (ZEPBOUND) 5 MG/0.5ML pen injection 2 mL 5 01/20/2024 -- Sig - Route: Inject 0.5 mL (5 mg) subcutaneously once every week. - Subcutaneous Sent to pharmacy as: Zepbound 5 MG/0.5ML Subcutaneous Solution Auto-injector (tirzepatide-weight management) Class: E-Prescribing Date/Time Signed: 01/20/2024 11:19 E-Prescribing Status: Receipt confirmed by pharmacy (01/20/2024 11:20 AM CDT) Contacted pharmacy to verify. They stated the old Rx had and did not see the new Rx order. They will process this request and notify pt when ready. Informed Tahira. Yue Lal RN 10:09 AM 02/17/2024. documented in this encounter Plan of Treatment Upcoming Encounters Date Type Department Care Team (Late st Contact Info) Description 06/21/2024 11:30 AM SUGGESTION CLERK Telemedicine [facility] [address] [facility] [address] [place] [address] Ioana Hogue, PA-C [address] [facility] [address] [place] [address] documented as of this encounter Visit Diagnoses Diagnosis Prediabetes Other abnormal glucose Obesity (BMI 30-39.9) (HRC) Obesity, unspecified documented in this encounter Care Teams Claims Sorter Relationship Specialty Start Date End Date Pete Mcfarland MD [address] [place] [address] PCP - General 03/18/16 documented as of this encounter
--- OUTSIDE RECORDS SUMMARY | 2024-02-25 07:26 | XMS_ITS | Encounter Summary ---
Author Organization [facility] Address [address], [place] [address] Care Team Providers Care Creative Art Therapist Name Role Phone Pete Mcfarland MD Primary Care Provider [phone]- [phone] Reason for Visit * Reason Comments Medication Questions Entered automatical ly based on patient selection in [email or web address]. Encounter Details Date Type Department Care Team (Late Contact Info) Description 11/30/2023 9:00 AM CDT E-Visit [facility] [address] [place] [address] [place] [id number] Ioana Hogue PA-Abena [phone] [place], [place] [address] Chief Comp: Medication Questions Social History Tobacco [...] Department Care Team (Late Contact Info) Description 06/21/2024 11:30 AM MARKET RELATIONSHIP MANAGER Telemedicine [facility] [address] [place], [place] [address] Ioana Hogue PAKhloe [address] [place], [place] [address] documented as of this encounter Visit Diagnoses Not on filedocumented in this encounter Care Teams Creative Art Therapist Relationship Specialty Start Date End Date Pete Mcfarland MD [address] [place] [address] PCP - General 03/18/16 documented as of this encounter
--- OUTSIDE RECORDS SUMMARY | 2024-02-25 07:26 | XMS_ITS | Encounter Summary ---
Author Organization [facility] Address [address], [place] [address] Care Team Providers Care Aged Or Disabled Care Worker Name Role Phone Pete Mcfarland MD Primary Care Provider [phone]- [phone] Reason for Visit * Reason Comments Video Visit Band Surg Followup Follow-up MW Encounter Details Date Type Department Care Team (Late st Contact Info) Description 01/20/2024 11:00 AM CDT [facility] [address] [place], [place] [address] Ioana Hogue PA-C [address] [facility] [address] [place], [place] [id number] Hyperlipidemia, unspecified hyperlipidemia type (HRC) (Primary Dx); Prediabetes; Obesity (BMI 30-39.9) (HRC); Essential (primary) hypertension (HRC); LAP-BAND surgery status Social History Tobacco Use Types Packs/Day Years Used Date Smoking Tobacco: Never Smokeless Tobacco: Never Alcohol Use Standard Drinks/Week Comments No 0 (1 standard drink = 0.6 oz pur e alcohol) Sex and Gender Information Value Date Recorded Sex Assigned at Not on file Gender Identity Not on file Sexual Orientation Not on file documented as of this encounter Last Filed Vital Signs Vital Sign Reading Time Taken Comments Blood Pressure - - Pulse - - Temperature - - Respiratory Rate - - Oxygen Saturation - - Inhaled Oxygen Concentration - - Weight 80.7 kg (178 lb) 01/20/2024 10:20 AM CDT Height 152.4 cm (5') 01/20/2024 10:20 AM CDT Body Mass Index 34.76 01/20/2024 10:20 AM CDT documented in this encounter Progress Notes * Ioana Hogue PA-C - 01/20/2024 11:00 AM CDT Lap Band Post-Operative Follow Up/Medical weight management follow up Date of Visit: 01/20/24 SUBJECTIVE: This 53 y.o. year-old female with chronic medical problems including HTN, hyperlipidemia, prediabetes presents for routine postoperative followup status post Adjustable Gastric Band. Weight today 178 lbs. Patient was on Ozempic 1.0 mg weekly and tolerated it well. Her hemoglobin A1c improved from 5.9% to 5.1% since she started Ozempic. However, her insurance stopped covering the medication. We prescribed Zepbound, but patient was unable to find supply of the medication for several months. She finally found supply of the medication and is on Zepbound 5 mg weekly. She has minimal nausea. Notes 5 lb weight loss since starting Zepbound. Of note, patient developed a kidney stone while on vacation in [place] last week. She had a stent placed in [place]. She is currently in the [place] ED for evaluation of recurrent flank pain. Band assessment: At last appointment, patient reported weekly episodes of stabbing epigastric pain. UGI noted a small hiatal hernia, but no signs of esophageal dysmotility. EGD was ordered, but not completed. Patientstates the epigastric pain improved. Bariatric Weight History and Calculations Weight History Age at Onset of Obesity: 21 Highest Adult Weight: 195 lb Preferred Weight: 148 lb Lowest Adult Weight: 110 lb At what weight would you not be disappointed?: 148 lb Starting Weight: 195 lb Current Weight: 178 lb Height (in): 59 Weight Calculations Excess Weight: 94 lb 8 oz Current Weight Loss: 17 lb Goal Weight: 100 lb 8 oz Starting BMI: 39.47 Percent Exess Weight Loss: 18 Current BMI: 36.03 Percent Totoal Body Weight Loss: 9 Date of Original Surgery: 2006 Type of Original Surgery: Lap band - [facility] Date of Revisional surgery: Type: None The patient is eating 3 meals and 1 snacks per day. Food volume is 1 cup per meal. Does not tolerate most vegetables - does not like the taste Focuses on eating protein at most meals: Yes Fluid intake averages 48-64 oz oz per day. Exercise: What are you doing for exercise?: Walking REVIEW OF SYSTEMS: Patient is experiencing the following symptoms/problems: Side Effects from Weight Loss Medication PAST MEDICAL HISTORY: Past Medical History: Diagnosis Date Essential (primary) hypertension (HRC) Hyperlipidemia (HRC) Morbid obesity (HRC) MEDICATIONS: hydrochlorothiazide (AKA HYDRODIURIL) 25 MG tablet, Take 1 Tablet (25 mg) by mouth daily. Indications: ALEXANDRA SÁNCHEZ ThuOct 01, 2015 12:59 PM Received from: External Pharmacy, Disp: , Rfl: 3 insulin pen needle (BD PEN NEEDLE BEATRIZ U/F) 32G X 4 MM, Inject 1 Each subcutaneously once a week. with pen injector device. Each needle is for one time use only, Disp: 50 Each, Rfl: 0 multivitamin (THERAGRAN) tablet, Take 1 Tablet by mouth daily., Disp: , Rfl: simvastatin (ZOCOR) 10 MG tablet, Take 1 Tablet (10 mg) by mouth daily at bedtime., Disp: , Rfl: No current facility-administered medications on file as of 01/20/2024. ADR/ALLERGIES: Patient has no known allergies. SOCIAL HISTORY: Social History Socioeconomic History Marital status: Spouse name: Not on file Number of children: Not on file Years of education: Not on file Highest education level: Not on file Occupational History Not on file Tobacco Use Smoking status: Never Smokeless tobacco: Never Vaping Use Vaping status: Never Used Substance and Sexual Activity Alcohol use: No Drug use: No Sexual activity: Not on file Other Topics Concern Bike Helmet Not Asked City [place] Not Asked Exercise Not Asked Guns in home Not Asked Seat Belt Not Asked Special Diet Not Asked Weight Concern Not Asked Social History Narrative Not on file Social Determinants of Health Financial Resource Strain: Not on file Food Insecurity: Not on file Transportation Needs: Not on file Physical Activity: Not on file Stress: Not on file Social Connections: Not on file Intimate Partner Violence: Not on file Housing Stability: Not on file Patient Employment Employer: Address: City: State: Zip: Phone: Occupation: Employee?: No OBJECTIVE: Ht 5' (152.4 cm) Wt 178 lb (32875 g) BMI 34.76 kg/m?? BMI: Estimated body mass index is 34.76 kg/m?? as calculated from the following: Height as of this encounter: 5' (152.4 cm). Weight as of this encounter: 178 lb (68801 g). GENERAL: Patient appears no apparent distress RESPIRATORY: Normal respiratory effort PSYCH: No overt evidence of anxiety or depression LABORATORY STUDIES: UGI 10/07/2023: FINDINGS: Breakfast Hostess image shows satisfactory positioning of lap band. Esophageal motility and contour with within normal limits. Small sliding hiatal hernia. Contrast passed readily across the band into the stomach which was within normal limits, as was the visualized portion of the duodenum. No witnessed reflux seen. Band adjustment section Adjustment None today date of last adjustment: 07/03/2016 amount volume after last adjustment: 5 ml ASSESSMENT: We will continue to treat the patient's obesity, obesity-associated medical conditions, and conditions exacerbated by or contributing to weight gain by aggressive management of weight: ICD-10-CM 1. Hyperlipidemia, unspecified hyperlipidemia type ([facility]) E78.5 2. Prediabetes R73.03 tirzepatide-weight management (ZEPBOUND) 5 MG/0.5ML pen injection DISCONTINUED: tirzepatide-weight management (ZEPBOUND) 5 MG/0.5ML pen injection 3. Obesity (BMI 30-39.9) ([facility]) E66.9 tirzepatide-weight management (ZEPBOUND) 5 MG/0.5ML pen injection DISCONTINUED: tirzepatide-weight management (ZEPBOUND) 5 MG/0.5ML pen injection 4. Essential (primary) hypertension ([facility]) I10 5. LAP-BAND surgery status Z98.84 Plan Dietary recommendations: Discussed with the patient the appropriate diet after a gastric band placement with emphasis on three meals per day, protein first at every meal followed by a good vegetable and/or fruit choice. Meal duration, exercise, snacking avoidance, avoidance of high calorie liquids and satiety goals were also reviewed. Medications: Continue Zepbound 5 mg weekly. Advised patient to focus on hydration. Patient can send a Interactive Mobile Advertisingt message, once she is fully recovered from the kidney stone, if her weight loss stalls or notices increased hunger/poor satiety, and we can consider increasing her dose of Zepbound. If epigastric pain returns or patient develops dysphagia, GERD, etc, then schedule EGD to evaluate for esophagitis, chen's esophagus, band erosion, GERD, band position, hiatal hernia, etc. Return to the clinic in 3-6 months sooner p.r.n. problems or concerns. Patient is especially encouraged to return to the clinic if failing to lose further weight. Ioana Hogue PA-C This service was provided via telehealth and conducted using a synchronous audiovideo link. Clinician location: Office Patient location: [place] [facility] Total time spent 30 minutes including non [id number] time spent reviewing medical records, counseling patient and preparing plan of care. documented in this encounter Nursing Notes * Massimo Armando MA - 01/20/2024 11:00 AM CDT Patient has completed mobile check in process. Last seen on with recorded weight of 168 lbs. Weight History: Bariatric Weight History and Calculations Weight History Age at Onset of Obesity: 21 Highest Adult Weight: 195 lb Preferred Weight: 148 lb Lowest Adult Weight: 110 lb At what weight would you not be disappointed?: 148 lb Starting Weight: 195 lb Current Weight: 178 lb Height (in): 59 Weight Calculations Excess Weight: 94 lb 8 oz Current Weight Loss: 17 lb Goal Weight: 100 lb 8 oz Starting BMI: 39.47 Percent Exess Weight Loss: 18 Current BMI: 36.03 Percent Totoal Body Weight Loss: 9 Measurements Do you have a scale? YES - 178 lb. Do you have a BP cuff? NO Eating patterns Patient is experiencing the following symptoms/problems: Side Effects from Weight Loss Medication Medications: reviewed by patient. Compliance: Yes Side effects: YES - Nausea Patient would like to discuss: Medication Massimo Armando MA 10:21 AM 01/20/2024 documented in this encounter Plan of Treatment Upcoming Encounters Date Type Department Care Team (Late st Contact Info) Description 06/21/2024 11:30 AM INDUSTRIAL ENGINEERING ANALYST Telemedicine [facility] [address] [facility] [address] [place] [address] Ioana Hogue PA-C [address] [facility] [address] [place] [address] documented as of this encounter Visit Diagnoses Diagnosis Hyperlipidemia, unspecified hyperlipidemia type (HRC)- Primary Prediabetes Other abnormal glucose Obesity (BMI 30-39.9) (HRC) Obesity, unspecified Essential (primary) hypertension (HRC) Unspecified essential hypertension LAP-BAND surgery status Bariatric surgery status documented in this encounter Care Teams Aged Or Disabled Care Worker Relationship Specialty Start Date End Date Pete Mcfarland MD [address] [place] [address] PCP - General 03/18/16 documented as of this encounter
--- OUTSIDE RECORDS SUMMARY | 2024-02-25 07:26 | XMS_ITS | Clinical Summary ---
Author Organization [facility] Address [place], [place] [address] Care Team Providers Care Supervisory Forester Name Role Phone Tatiana Cosby MD Primary Care Provider +1- [phone] Allergies No known active allergies Medications Medication [...] epicondylitis Procare Foam Wrist Splint, Right, Large [phone] Length of Use: 99 months 0 12/25/2022 Active Active Problems No known active problems Encounters Date Type Department Care Team Description 01/07/2024 Orders Only [facility] Scanner 1 scan: (1-Ord) [facility], CT ABDOMEN PELVIS W CON, 01/07/2024 from Last 3 Months Social History Tobacco [...] 2) 2020 COVID-19 vaccine series (2022- season) 2024 04/23/2022, 09/07/2021, 03/15/2021 Influenza for age 50-64 02/07/2024 Mammogram for age 45-75 03/16/2024 03/16/2023 Pneumococcal series for age 6-64 Aged Out No longer eligible b ased on patient's age to complete this topic Procedures Procedure Name Priority Date/Time Associated Diagnosis Comments SCAN-CT INTERPRETATION 12:00 AM CDT SCAN-MAMMOGRAPHY REPORT 03/16/20 12:00 AM CDT from Last 3 Months or Most Recently Relevant to Health Maintenance Results * SCAN-CT INTERPRETATION (01/07/2024 12:00 AM CDT) Anatomical Region Laterality Modality Other Scanner OTHER * SCAN-MAMMOGRAPHY REPORT (03/16/2023 12:00 AM CDT) Anatomical Region Laterality Modality Other Scanner OTHER from Last 3 Months or Most Recently Relevant to Health Maintenance Care Teams Supervisory Forester Relationship Specialty Start Date End Date Tatiana Cosby MD [address] [place] [id number] PCP - General Internal Medicine 12/25/22
--- OUTSIDE RECORDS SUMMARY | 2024-02-25 07:26 | XMS_ITS | Encounter Summary ---
Author Organization [facility] Address [address] [address] Care Team Providers Care Retail Personal Banker Name Role Phone Pete Mcfarland MD Primary Care Provider +1- [phone] Reason for Visit * Reason Comments Medication Questions Entered automatical ly based on patient selection in [employer]. Encounter Details Date Type Department Care Team (Late st Contact Info) Description 02/10/2024 11:30 AM CDT E-Visit [facility] [address] [facility] [address] [place], [place] [id number] Ioana Hogue PA-C [address] [facility] [address] [place], [place] [address] Chief Comp: Medication Questions Social History Tobacco [...] Notes * Yue Lal RN - 02/17/2024 10:10 AM CDT Pt called stating her pharmacy [...] Tahira. Yue Lal RN 10:09 AM 02/17/2024. From refill encounter dated 02/15/24. documented in this encounter Plan of Treatment Upcoming Encounters Date Type Department Care Team (Late st Contact Info) Description 06/21/2024 11:30 AM CARCASS SPLITTER Telemedicine [facility] [address] [facility] [address] [place] [address] Ioana Hogue PAElijahC [address] [facility] [address] [place] [address] documented as of this encounter Visit Diagnoses Not on filedocumented in this encounter Care Teams Retail Personal Banker Relationship Specialty Start Date End Date Pete Mcfarland MD [address] [place] [address] PCP - General 03/18/16 documented as of this encounter
--- OUTSIDE RECORDS SUMMARY | 2024-02-25 07:26 | XMS_ITS | Continuity of Care Document ---
Author Organization [facility] Address [address] [place] [address] Care Team Providers Care General Labor Forklift Operator Name Role Phone MIKAEL WALTER Primary Care Provider [facility] Primary Care Pro vider Assessment No assessment recorded. Plan of Treatment Reminders Order Date Submit Date Provider Last Modified By Organization Details Last Modified Time Details Appointments None recorded. Lab urinalysi s, dipstick 2023 024 aronningen [facility], [address], [place], [address], 12:11:17 Referral None recorded. Procedures None recorded. Surgeries None recorded. Imaging None recorded. Medication Orders None recorded. Patient TargetsNo targets recorded. Patient InstructionsNo instructions recorded. Reason for Referral None Reported. Results Created Date Observation Date Name Description Value Unit Range Abnormal Flag Note LastModifiedBy Organization Detail LastModifiedTime 02/01/2002/01/2024 urina lysis , dipst ick BLOOD Negati ve Not Available [facility] [address], [place], [address], 02/01/2024 09:32:05 02/01/2002/01/2024 urina lysis , dipst ick BILIRUBIN Negati ve Not Available [facility] [address], [place], [address], 02/01/2024 09:32:05 02/01/2002/01/2024 urina lysis , dipst ick UROBILINOGEN 0.2 mg/dL (Norm) Not Available [facility] [address], [place], [address], 02/01/2024 09:32:05 02/01/20 24 02/01/2024 urina lysis , dipst ick KETONES Negati ve Not Available [facility] [address], [place], [address], 02/01/2024 09:32:05 02/01/20 24 02/01/2024 urina lysis , dipst ick PROTEIN Negati ve Not Available [facility] [address], [place], [address], 02/01/2024 09:32:05 02/01/20 24 02/01/2024 urina lysis , dipst ick NITRITES Negati ve Not Available [facility] [address], [place], [address], 02/01/2024 09:32:05 02/01/20 24 02/01/2024 urina lysis , dipst ick GLUCOSE Negati ve Not Available [facility] [address], [place], [address], 02/01/2024 09:32:05 02/01/20 24 02/01/2024 urina lysis , dipst ick p.H. 5.0 Not Available [facility] [address], [place], [address], 02/01/2024 09:32:05 02/01/20 24 02/01/2024 urina lysis , dipst ick S.G. (Specific [place]) 1.025 Not Available [facility] [address], [place], [address], 02/01/2024 09:32:05 02/01/20 24 02/01/2024 urina lysis , dipst ick LEUKOCYTES Negati ve Not Available [facility] [address], [place], [address], 02/01/2024 09:32:05 Result Notes None recorded. Procedures [...] Updated DateTime 02/01/2024 152.4 cm 33.2 kg/m2 24870.7 g Breana Lopez [facility] 02/01/2024 12:13:49 Social [...] available 2023 13:16:14 Medical History Condition Response Diabetes N Sexually Transmitted Infection N Bleeding Disorder N High Blood Pressure Y Kidney Stones Y Cancer N Lung Disease N Depression N High Cholesterol Y GERD/Acid Reflux N Heart Disease N Gynecological History Statement/Question Response If Post Menopausal, Age at Menopause 53 Leaking urine with intercourse N Hormone Therapy N Sexually Active? Y Pain with intercourse N Obstetrics History GPAL:G 0 P 0 0 0 0 Immunizations Vaccine Type Date Status Provider Name and Address Organization Details Recorded Time zoster live 06/08/2021 completed Breana Ronspenceren null, [facility] 02/01/2024 12:10:01 influenza, unspecified formulation 02/06/2023 completed Breana Ronningen null, [facility] 02/01/2024 12:10:01 SARS-COV-2 (COVID-19) vaccine, UNSPECIFIED 02/06/2023 completed Breana Ronningen null, [facility] 02/01/2024 12:10:01 Influenza, split virus, quadrivalent, preservative 03/18/2021 completed Breana Ronningen null, [facility] 02/01/2024 12:10:01 zoster recombinant 09/07/2021 completed Breana Kelton ngen null, [facility] 02/01/2024 12:10:01 zoster recombinant 01/04/2021 completed Breana Kelton ngen null, [facility] 02/01/2024 12:10:01 Influenza, live, trivalent, intranasal 03/10/2012 completed Breana Ronningen null, [facility] 02/01/2024 12:10:01 Influenza, live, trivalent, intranasal 04/14/2011 completed Breana Ronningen null, [facility] 02/01/2024 12:10:01 COVID-19, mRNA, LNP-S, PF, 30 mcg/0.3 mL dose 06/26/2020 completed Breana Ronningen null, [facility] 02/01/2024 12:10:01 COVID-19, mRNA, LNP-S, PF, 30 mcg/0.3 mL dose 03/15/2021 completed Breana Ronningen null, [facility] 02/01/2024 12:10:01 COVID-19, mRNA, LNP-S, PF, 30 mcg/0.3 mL dose 06/05/2020 completed Breana Ronningen null, [facility] 02/01/2024 12:10:01 COVID-19, mRNA, LNP-S, PF, 30 mcg/0.3 mL dose, sabra-sucrose 09/07/2021 completed Breana Ronningen null, [facility] 02/01/2024 12:10:01 COVID-19, mRNA, LNP-S, bivalent, PF, 30 mcg/0.3 mL dose 04/23/2022 completed Breana Ronningen null, [facility] 02/01/2024 12:10:01 COVID-19, mRNA, LNP-S, PF, sabra-sucrose, 3 mcg/0.3 mL 03/03/2023 completed Breana Ronningen null, [facility] 02/01/2024 12:10:01 Tdap 09/13/2013 completed Breana Ronningen null, [facility] 02/01/2024 12:10:01 Influenza, split virus, trivalent, PF 03/10/2018 completed Breana Ronningen null, [facility] 02/01/2024 12:10:01 Influenza, split virus, trivalent, PF 03/14/2020 completed Breana Ronningen null, [facility] 02/01/2024 12:10:01 Novel Uzmysdaet-[id number], nasal 04/04/2009 completed Breana Ronningen null, [facility] 02/01/2024 12:10:01 Influenza, live, quadrivalent, intranasal 03/14/2015 completed Breana Ronningen null, [facility] 02/01/2024 12:10:01 Influenza, live, quadrivalent, intranasal 03/29/2013 completed Breana Ronningen null, [facility] 02/01/2024 12:10:01 Influenza, live, quadrivalent, intranasal 04/05/2014 completed Breana Ronningen null, [facility] 02/01/2024 12:10:01 Influenza, split virus, quadrivalent, PF 03/03/2023 completed Breana Ronningen null, [facility] 02/01/2024 12:10:01 Influenza, split virus, quadrivalent, PF 03/31/2022 completed Breana Ronningen null, [facility] 02/01/2024 12:10:01 Influenza, split virus, quadrivalent, PF 04/04/2009 completed Breana Ronningen null, [facility] 02/01/2024 12:10:01 Influenza, split virus, quadrivalent, PF 05/13/2016 completed ELIJAH [facility] - [facility] 02/01/2024 12:10:02 Influenza, split virus, quadrivalent, PF 05/19/2017 completed Breana lopez, ELIJAH [facility] 02/01/2024 12:10:02 Past Encounters Encounter ID Performer Location Encounter Start Date Encounter Closed Date Diagnosis/Indication Diagnosis SNOMED-CT Code Diagnosis ICD10 Code [id number] ALEC DE [facility]ON[facility] [address] [place] [place] [address] 02/01/2024 11:46:36 02/02/2024 15:14:06 Kidney stone 92351578 N20.0 Health Concerns Section Related Observation LastModified by Organization Detai ls LastModified Time None Recorded Concern Status LastModified by Organization Details LastModified Time None Recorded Payers Encounter Date Sequence Insurance Name Policy Number Policy Baker Covered Member ID Baker Member ID Guarantor Name 02/01/2024 1 [place] [id number] Tahira Kim [id number] Tahira Kim Notes Date Note Type Note Provider Name and Address Organization Details Recorded Time 02/01/2024 text/html HPI Notes: 53 yo F presents for kidney stone. Recently seen in ER while on vacation in [place] with left flank pain, found to have 3 mm distal left ureteral stone with mild hydronephrosis. She underwent (presumably, no op note available) URS/stent on 01/14 and was discharged. Stent was left on a string which she self-removed on 01/17. She soon after developed left flank pain, seen in ER in [place], had CT which showed L hydronephrosis, took flomax/pain meds for 48 hours and pain resolved. She denies prior h/o stones. TANA MIGUEL PA-C [address] [facility],[address], [place], [address], [facility] 02/01/2024 12:57:00 OBGyn Episode No OBEpisode recorded.
--- OUTSIDE RECORDS SUMMARY | 2024-02-25 07:26 | XMS_ITS | Clinical Summary ---
[facility] Organization [facility] Address [address], [place] [address] Care Team Providers Care Inventory And Pricing Associate Name Role Phone Pete Mcfarland MD Primary Care Provider [phone] Source Comments You are receiving this document as you are listed as the primary care provider,follow-up provider, or the patient has been referred to you for consultation.This is in compliance with the Medicare andThe [facility] Hospital[facility] EHR Incentive Program,which states Providers who transition their patient to another setting of careor provider of care or refers their patient to another provider of care shouldprovide summary care record for each transition of care or referral. [facility] Allergies No known active allergies Medications Medication [...] 50 Each 07/31/2021 Active tirzepatide-weight management (ZEPBOUND) 5 MG/0.5ML pen injectionIndicatio ns:Prediabetes,Obe sity (BMI 30-39.9) (HRC) Inject 0.5 mL (5 mg) subcutaneously once every week. 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 ) 02/10/2024 11:30 AM CDT E-Visit [facility] [address] [address] Ioana Hogue PA-C Chief Comp: Medication Questions 01/20/2024 11:00 AM CDT Telemedicine [facility] [address] [address] Ioana Hogue PA-C Hyperlipidemia, unspecified hyperlipidemia type (HRC) (Primary Dx); Prediabetes; Obesity (BMI 30-39.9) (HRC); Essential (primary) hypertension (HRC); LAP-BAND surgery status 01/20/2024 E-Visit [facility] [address] [address] Mychart, Generic Provider 11/30/2023 9:00 AM CDT E-Visit [facility] [address] [address] Ioana Hogue PA-C Chief Comp: Medication Questions [...] AM CDT Pulse 82 07/14/2019 10:43 AM CLINICAL ACADEMIC ALLERGIST Temperature 36.1 ??C (97 ??F) 11/05/2017 11:16 AM CDT Respiratory Rate 20 10/07/2011 12:57 PM CDT Oxygen Saturation - - Inhaled Oxygen Concentration - - Weight 80.7 kg (178 lb) 01/20/2024 10:20 AM CDT Height 152.4 cm (5') 01/20/2024 10:20 AM CDT Body Mass Index 34.76 01/20/2024 10:20 AM CDT Plan of Treatment Upcoming Encounters Date Type Department Care Team (Late st Contact Info) Description 06/21/2024 11:30 AM CLINICAL ACADEMIC ALLERGIST Telemedicine [facility] [address] [facility] [address] [place], [place] [id number] Ioana Hogue, PA-C [address] [facility] [address] [place] [address] Health Maintenance Due Date Last Done Comments Cervical Cancer Screening Due 1970 Colon Cancer Screening Plan Due 1970 Hep C Screening (Preventive Services) 1970 Mammogram 1970 HIV Screening (Preventive Services) 1986 Adult Preventive Visit 1988 HepB (1) 1989 Cholesterol 2015 Prediabetes: HGBA1C 07/19/2022 07/19/2021 DTaP/Tdap/Td (2 - Tdap) 09/14/2023 09/13/2013 COVID-19 Vaccine ( season) 2024 03/03/2023, 04/23/2022, 09/07/2021, Additional history exists Influenza (#1) 2024 03/03/2023, 06/2022, 03/31/2022, Additional history exists Zoster/Shingles Completed 09/07/2021, 06/2021, 01/04/2021 HepA Aged Out No longer eligi [...] Comments HGB A1C Routine 07/19/2021 9:59 AM CLINICAL ACADEMIC ALLERGIST Screening for diabetes mellitus Obesity (BMI 30-39.9) from Last 3 Months or Most Recently Relevant to Health Maintenance Results * (ABNORMAL) Hemoglobin A1C Glycosylated (07/19/2021 9:59 AM CLINICAL ACADEMIC ALLERGIST) Hemoglobin A1C 5.9(H) <=5.6 % 07/19/2021 5:20 PM CLINICAL ACADEMIC ALLERGIST [facility] Blood Venipuncture / Unknown 07/19/2021 9:59 AM CLINICAL ACADEMIC ALLERGIST 07/19/2021 9:59 AM CLINICAL ACADEMIC ALLERGIST Narrative [facility] - 07/19/2021 5:20 PM CLINICAL ACADEMIC ALLERGIST For patients not previously diagnosed with diabetes: 5.7-6.4%: Increased risk for diabetes 6.5% and greater: Diagnostic for diabetes For patients diagnosed with diabetes: <8.0%: Goal of therapy for ages 18-75 Clinicians may recommend a higher or lower goal for specific individuals. Ioana Hogue PA-C LAB_1 [facility] [address] [address], [facility] [phone] from Last 3 Months or Most Recently Relevant to Health Maintenance Care Teams Inventory And Pricing Associate Relationship Specialty Start Date End Date Pete Mcfarland MD [address] [place] [address] PCP - General 03/18/16
== END 2024-02-22 09:40 | disposition home or self-care (01) ==
LOC: NFLDREF 02-25 07:24
PROVIDERS: PCP Internal Medicine; Referring Provider Internal Medicine; Visit Provider Internal Medicine
DX: E78.5 Hyperlipidemia, unspecified (principal); I10 Essential (primary) hypertension; R73.03 Prediabetes
CPT/HCPCS: 80048; 80061

== ENCOUNTER 2024-06-06 10:09 | Outpatient (CLI) | payer BC, SELFPAY ==
--- OUTSIDE RECORDS SUMMARY | 2024-06-02 15:21 | XMS_ITS | Data Portability ---
Author Organization [facility] Address [address] [facility] [address] [place] [address] Care Team Providers Care Booky Name Role Phone MIKAEL WALTER Primary Care Provider [phone] [facility] Primary Care Pro vider Assessment No assessment recorded. Plan of Treatment Reminders Order Date Submit Date Provider Last Modified By Organization Details Last Modified Time Details Appointments None recorded. Lab urinalysi s, dipstick 2023 024 [facility], [address], [place], [address], 12:11:17 Referral None recorded. Procedures None recorded. Surgeries None recorded. Imaging None recorded. Medication Orders None recorded. Patient TargetsNo targets recorded. Patient InstructionsNo instructions recorded. Reason for Referral None Reported. Results Created Date Observation Date Name Description Value Unit Range Abnormal Flag Note LastModifiedBy Organization Detail LastModifiedTime 02/01/2002/01/2024 urina lysis , dipst ick BLOOD Negati ve Not Available [facility] [address], [place], [address], 02/01/2024 09:32:05 02/01/2002/01/2024 urina lysis , dipst ick BILIRUBIN Negati ve Not Available [facility] [address], [place], [address], 02/01/2024 09:32:05 02/01/2002/01/2024 urina lysis , dipst ick UROBILINOGEN 0.2 mg/dL (Norm) Not Available [facility] [address], [place], [address], 02/01/2024 09:32:05 02/01/20 24 02/01/2024 urina lysis , dipst ick KETONES Negati ve Not Available [facility] [address], [place], [address], 02/01/2024 09:32:05 02/01/20 24 02/01/2024 urina lysis , dipst ick PROTEIN Negati ve Not Available [facility] [address], [place], [address], 02/01/2024 09:32:05 02/01/2002/01/2024 urina lysis , dipst ick NITRITES Negati ve Not Available [facility] [address], [place], [address], 02/01/2024 09:32:05 02/01/2002/01/2024 urina lysis , dipst ick GLUCOSE Negati ve Not Available [facility] [address], [place], [address], 02/01/2024 09:32:05 02/01/2002/01/2024 urina lysis , dipst ick p.H. 5.0 Not Available [facility] [address], [place], [address], 02/01/2024 09:32:05 02/01/2002/01/2024 urina lysis , dipst ick S.G. (Specific [place]) 1.025 Not Available [facility] [address], [place], [address], 02/01/2024 09:32:05 02/01/2002/01/2024 urina lysis , dipst ick LEUKOCYTES Negati ve Not Available [facility] [address], [place], [address], 02/01/2024 09:32:05 Result Notes None recorded. Procedures [...] Updated DateTime 02/01/2024 152.4 cm 33.2 kg/m2 92067.7 g Breana Lopez [facility] 02/01/2024 12:13:49 Social History Question Answer [...] 0 0 Immunizations Vaccine Type Date Status Note Provider Nam e and Address Organization Details Recorded Time zoster live 2 completed Breana Ronningen null, [facility] 02/01/2024 12:10:01 influenza, unspecified formulation 3 completed Breana Ronningen null, [facility] 02/01/2024 12:10:01 SARS-COV-2 (COVID-19) vaccine, UNSPECIFIED 3 completed Breana Ronningen null, [facility] 02/01/2024 12:10:01 Influenza, split virus, quadrivalent, preservative 1 completed Breana Ronningen null, [facility] 02/01/2024 12:10:01 zoster recombinant 2 completed Breana Ronningen null, [facility] 02/01/2024 12:10:01 zoster recombinant 1 completed Breana Ronningen null, [facility] 02/01/2024 12:10:01 Influenza, live, trivalent, intranasal 2 completed Breana Ronningen null, [facility] 02/01/2024 12:10:01 Influenza, live, trivalent, intranasal 1 completed Breana Ronningen null, [facility] 02/01/2024 12:10:01 COVID-19, mRNA, LNP-S, PF, 30 mcg/0.3 mL dose 1 completed Breana Ronningen null, [facility] 02/01/2024 12:10:01 COVID-19, mRNA, LNP-S, PF, 30 mcg/0.3 mL dose 1 completed Breana Ronningen null, [facility] 02/01/2024 12:10:01 COVID-19, mRNA, LNP-S, PF, 30 mcg/0.3 mL dose 0 completed Breana Ronningen null, [facility] 02/01/2024 12:10:01 COVID-19, mRNA, LNP-S, PF, 30 mcg/0.3 mL dose, sabra-sucrose 2 completed Breana Ronningen null, [facility] 02/01/2024 12:10:01 COVID-19, mRNA, LNP-S, bivalent, PF, 30 mcg/0.3 mL dose 2 completed Breana Ronningen null, [facility] 02/01/2024 12:10:01 COVID-19, mRNA, LNP-S, PF, sabra-sucrose, 3 mcg/0.3 mL 3 completed Breana Ronningen null, [facility] 02/01/2024 12:10:01 Tdap 4 completed Breana Ronningen null, [facility] 02/01/2024 12:10:01 Influenza, split virus, trivalent, PF 8 completed Breana Ronningen null, [facility] 02/01/2024 12:10:01 Influenza, split virus, trivalent, PF 0 completed Breana Ronningen null, [facility] 02/01/2024 12:10:01 Novel Oiadybjbg-[id number], nasal 9 completed Breana Ronningen null, [facility] 02/01/2024 12:10:01 Influenza, live, quadrivalent, intranasal 5 completed Breana Ronningen null, [facility] 02/01/2024 12:10:01 Influenza, live, quadrivalent, intranasal 3 completed Breana Ronningen null, [facility] 02/01/2024 12:10:01 Influenza, live, quadrivalent, intranasal 4 completed Breana Ronningen null, [facility] 02/01/2024 12:10:01 Influenza, split virus, quadrivalent, PF 3 completed Breana Ronningen null, [facility] 02/01/2024 12:10:01 Influenza, split virus, quadrivalent, PF 2 completed Breana Ronningen null, [facility] 02/01/2024 12:10:01 Influenza, split virus, quadrivalent, PF 9 completed Breana John lopez, [facility] 02/01/2024 12:10:01 Influenza, split virus, quadrivalent, PF 6 completed Breana John null, [facility] 02/01/2024 12:10:02 Influenza, split virus, quadrivalent, PF 7 completed Breana John lopez, [facility] 02/01/2024 12:10:02 Past Encounters Encounter ID Performer Location Encounter Start Date Encounter Closed Date Diagnosis/Indication Diagnosis SNOMED-CT Code Diagnosis ICD10 Code [id number] [facility] [address] [place] [address] 02/01/2024 11:46:36 02/02/2024 15:14:06 Kidney stone 75721568 N20.0 Health Concerns Section Related Observation LastModified by Organization Detai ls LastModified Time None Recorded Concern Status LastModified by Organization Details LastModified Time None Recorded Advance Directives Directive None Recorded Payers Encounter Date Sequence Insurance Name Policy Number Policy Baker Covered Member ID Baker Member ID Guarantor Name 02/01/2024 1 [place] [id number] Tahira Kim [id number] Tahira Kim Notes Date Note Type Note Provider Name and Address Organization Details Recorded Time 02/01/2024 text/html 53 yo F presents for kidney stone. Recently seen in ER while on vacation in [place] with left flank pain, found to have 3 mm distal left ureteral stone with mild hydronephrosis. She underwent (presumably, no op note available) URS/stent on 01/14 and was discharged. Stent was left on a string which she self-removed on 01/17. She soon after developed left flank pain, seen in ER in [place], had CT which showed L hydronephrosis, took flomax/pain meds for 48 hours and pain resolved. She denies prior h/o stones. TANA MIGUEL PA-C [address] [facility], [place], [address], [facility] 02/01/2024 12:57:00 OBGyn Episode No OBEpisode recorded.
--- NOTE | 2024-06-06 10:15 | CRLHL7_ITS ---
For Patients: As a result of the Century Cures Act, medical imaging exams and procedure reports are released immediately into your electronic medical record. You may view this report before your referring provider. If you have questions, please contact your health care provider. BILATERAL DIGITAL SCREENING MAMMOGRAM WITH COMPUTER-AIDED DETECTION AND TOMOSYNTHESIS CLINICAL HISTORY: Routine screening exam. COMPARISON: 03/16/23, 10/18/21, 04/17/20. TECHNIQUE: Digital mammogram in CC and MLO projections including computer-aided detection (CAD). Tomosynthesis was used in this interpretation. BREAST COMPOSITION: There are scattered areas of fibroglandular density. FINDINGS: RIGHT Breast: No suspicious findings. LEFT Breast: Focal asymmetric density lateral LEFT breast 8 cm from the nipple. Post-reduction mammoplasty changes. Probable scar tissue. IMPRESSION: LEFT breast asymmetry/mass. RECOMMENDATIONS: Additional mammographic views of the LEFT breast including 3D spot compression CC/MLO. LEFT breast ultrasound may also be required. The [facility] will contact the patient. A lay language report of this examination will be provided to the patient. BI-RADS Category 0: Incomplete: Need Additional Imaging Evaluation Dictated by Kt Coleman MD @ 06/06/2024 11:48:34 AM /sp SP/Dictated by: Kt Coleman MD @ 06/06/2024 11:48:00 AM (Electronically Signed)
== END 2024-06-06 10:10 | disposition home or self-care (01) ==
LOC: MAMMO 10:11
PROVIDERS: PCP Internal Medicine; Visit Provider Internal Medicine
DX: Z12.31 Encounter for screening mammogram for malignant neoplasm of breast (principal); N63.20 Unspecified lump in the left breast, unspecified quadrant
CPT/HCPCS: 77063; 77067

== ENCOUNTER 2024-06-15 10:46 | Outpatient (CLI) | payer BC, SELFPAY ==
--- NOTE | 2024-06-15 10:45 | CRLHL7_ITS ---
For Patients: As a result of the Cures Act, medical imaging exams and procedure reports are released immediately into your electronic medical record. You may view this report before your referring provider. If you have questions, please contact your health care provider. DIGITAL DIAGNOSTIC LEFT MAMMOGRAM USING TOMOSYNTHESIS AND COMPUTER-AIDED DETECTION LEFT BREAST ULTRASOUND CLINICAL HISTORY: LEFT breast mass/asymmetry. COMPARISON: 06/06/2024. TECHNIQUE: Digital LEFT mammogram in two projections. Tomosynthesis and CAD were used in this interpretation. Real-time ultrasound imaging of LEFT breast with imaging documentation. BREAST COMPOSITION: There are scattered areas of fibroglandular density. FINDINGS: 3D spot compression CC/MLO LEFT breast mammogram images submitted. Persistent asymmetric density is present within the lateral LEFT breast. No architectural distortion. No suspicious calcifications Targeted LEFT breast ultrasound performed at 3 o`clock 5 cm from the nipple. Solid hypoechoic nodule is present measuring 7 x 6 x 10 millimeters. IMPRESSION: Indeterminate solid nodule LEFT breast 3 o`clock 5 cm from the nipple measuring 7 x 6 x 10 millimeters. RECOMMENDATIONS: Ultrasound-guided biopsy. A lay language report of this examination will be provided to the patient. BI-RADS Category 4: Suspicious Dictated by Kt Coleman MD @ 06/15/2024 12:22:44 PM jj/Dictated by: Kt Coleman MD @ 06/15/2024 12:54:00 PM (Electronically Signed)
--- NOTE | 2024-06-15 11:15 | CRLHL7_ITS ---
For Patients: As a result of the Cures Act, medical imaging exams and procedure reports are released immediately into your electronic medical record. You may view this report before your referring provider. If you have questions, please contact your health care provider. SEE DIGITAL DIAGNOSTIC LEFT MAMMOGRAM PERFORMED SAME DAY CRL:[email or web address] gomez/Dictated by: Kt Coleman MD @ 06/15/2024 12:22:00 PM (Electronically Signed)
== END 2024-06-15 10:47 | disposition home or self-care (01) ==
PROVIDERS: PCP Internal Medicine; Visit Provider Internal Medicine
DX: N63.20 Unspecified lump in the left breast, unspecified quadrant (principal); R92.8 Other abnormal and inconclusive findings on diagnostic imaging of breast
CPT/HCPCS: 76642; 77065; G0279

== ENCOUNTER 2024-06-21 09:07 | Outpatient (CLI) | payer BC, SELFPAY ==
--- NOTE | 2024-06-21 09:15 | CRLHL7_ITS ---
For Patients: As a result of the Century Cures Act, medical imaging exams and procedure reports are released immediately into your electronic medical record. You may view this report before your referring provider. If you have questions, please contact your health care provider. ULTRASOUND-GUIDED BREAST BIOPSY AND POST-BIOPSY DIGITAL MAMMOGRAM FOR BIOPSY MARKER PLACEMENT CLINICAL HISTORY: Indeterminate nodule. COMPARISON STUDIES: 06/15/2024, 06/06/2024. TECHNIQUE: Real-time ultrasound with image documentation was used for targeting the breast lesion. Core biopsy specimens were obtained using an automated gun with a 16-gauge biopsy needle. Post-biopsy CC and ML digital mammograms were obtained to document position of the biopsy marker. CONSENT and TIME OUT: The procedure, risks, and alternatives were explained to the patient and a consent was signed. [place] Protocol was followed including pre-procedure verification that relevant information/documentation was available, reviewed and properly matched to the patient; consent accurate and complete; and equipment and supplies available. Time Out was conducted just prior to starting procedure to verify the four required elements: patient identity, correct side/site marked (if applicable), procedure, relevant images/results properly labeled and displayed (if applicable). PROCEDURE: The patient was positioned supine on the ultrasound table. The breast was prepped with ChloraPrep. 10 cc of 1 percent lidocaine used for local anesthesia. Core samples were obtained. A sterile metal biopsy clip was placed percutaneously to marcy the lesion position within the breast. The specimens were placed in 10% formalin and sent to the pathology department. Pressure was held on the biopsy site until all bleeding subsided. The skin incision was closed with Steri-Strips. An ice pack was positioned over the biopsy site. Post-biopsy instructions were reviewed with the patient, and a written copy was given to her. LATERALITY: LEFT breast. LESION: Heterogeneous solid nodule at posterior depth measures 4 x 10 x 7 millimeters at 3 o`clock 5 cm from the nipple. SUSPICION FOR MALIGNANCY: Intermediate. NUMBER OF SAMPLES: 5. BIOPSY CLIP SHAPE: Oval. PROXIMITY OF CLIP TO TARGET: Within the lesion. IMPRESSION: Ultrasound-guided breast biopsy. When the pathology report is available, an addendum to this report will be made. ACR not applicable Dictated by Kt Coleman MD @ 06/21/2024 11:45:52 AM jj/Dictated by: Kt Coleman MD @ 06/21/2024 11:45:00 AM (Electronically Signed)
--- NOTE | 2024-06-21 10:00 | CRLHL7_ITS ---
For Patients: As a result of the Century Cures Act, medical imaging exams and procedure reports are released immediately into your electronic medical record. You may view this report before your referring provider. If you have questions, please contact your health care provider. SEE ULTRASOUND-GUIDED LEFT BREAST BIOPSY PERFORMED SAME DAY CRL:[email or web address] gomez/Dictated by: Kt Coleman MD @ 06/21/2024 10:39:00 AM (Electronically Signed)
== END 2024-06-21 09:08 | disposition home or self-care (01) ==
LOC: US 09:08
PROVIDERS: PCP Internal Medicine; Visit Provider Internal Medicine
DX: N63.20 Unspecified lump in the left breast, unspecified quadrant (principal); N64.89 Other specified disorders of breast; R92.8 Other abnormal and inconclusive findings on diagnostic imaging of breast
CPT/HCPCS: 19083; 77065; 88305; A4648; A4649

== ENCOUNTER 2025-02-08 09:48 | Outpatient (CLI) | payer BC, SELFPAY | END 2025-02-08 09:49 | disposition home or self-care (01) | LOC: NFLDREF 02-09 16:10 | PROVIDERS: PCP Internal Medicine; Referring Provider Internal Medicine; Visit Provider Obstetrics & Gynecology | DX: R30.0 Dysuria (principal) | CPT/HCPCS: 87086 ==

== ENCOUNTER 2025-04-05 11:31 | Outpatient (CLI) | payer BC, SELFPAY | END 2025-04-05 11:32 | disposition home or self-care (01) | LOC: NFLDREF 04-06 19:29 | PROVIDERS: PCP Internal Medicine; Referring Provider Internal Medicine; Visit Provider Internal Medicine | DX: I10 Essential (primary) hypertension (principal); E78.5 Hyperlipidemia, unspecified | CPT/HCPCS: 80048; 80061 ==